=== PATIENT | female | born 2000 | race Caucasian/White ===

== ENCOUNTER 2025-04-05 00:31 | Emergency (ER) | payer OTHER ==
[~2025-04-05] VITALS: Ht 167.6 cm; Wt 86.2 kg
[2025-04-05 01:52] LABS: APPEARANCE,URINE SLIGHTLY CLOUDY (CLEAR); BLOOD, URINE 3+ Ery/uL (NEGATIVE); LEUKOCYTE ESTERASE ,URINE TRACE (NEGATIVE); NITRITE, URINE NEGATIVE (NEGATIVE); UGLUCOSE NEGATIVE (NEGATIVE)
[2025-04-05 01:53] LABS: ADD URINE CULTURE NO; PREGNANCY TEST URINE QUAL NEGATIVE (NEGATIVE)
[2025-04-05] MEDS: KETOROLAC TROMETHAMINE INJ 30 MG/ML VIAL IM ONE (02:30)
[2025-04-05 04:00] VITALS: BP 110/70; TEMP 98; O2SAT 98
== END 2025-04-05 04:01 | disposition home or self-care (01) ==
LOC: ER 01:01
DX: R10.31 Right lower quadrant pain (principal); R10.32 Left lower quadrant pain
CPT/HCPCS: 81001; 84703-TC